=== PATIENT | male | born 1975 | race Caucasian/White ===

== ENCOUNTER → 2020-12-04 09:01 | Outpatient (CLI) | payer OTHER, SELFPAY ==
[2020-12-04 19:31] LABS: Alanine Aminotransferase 33 IU/L (<50); Albumin 4.4 g/dL (3.5-5.0); Albumin Globulin Ratio 1.7 (1.0-2.8); Alkaline Phosphatase 57 U/L (38-126); Aspartate Aminotransferase 28 IU/L (17-59); BUN Creatinine Ratio 21.7 (6-22); Bilirubin Total 1.6 mg/dL (0.2-1.3); Blood Urea Nitrogen 20 mg/dL (9-20); Calcium 9.7 mg/dL (8.4-10.2); Carbon Dioxide 34 mmol/L (22-32); Chloride 101 mmol/L (98-107); Cholesterol 149 mg/dL (140-199); Estimated Glomerular Filt Rate > 60.0 mL/min (>60); Globulin 2.6 g/dL (1.7-4.1); Glucose 95 mg/dL (70-100); HDL Cholesterol 43 mg/dL (40-60); HEMOLYSIS < 15 (0-50); LDL Cholesterol Calculated 96 mg/dL (<100); Potassium 4.4 mmol/L (3.4-5.1); Sodium 140 mmol/L (137-145); Triglycerides 52 mg/dL (35-150)
[2020-12-04 20:02] LABS: Prostate Specific Antigen Scrn 1.43 ng/mL (0.1-4.0)
== END ==
PROVIDERS: PCP Physician Assistant; Visit Provider Physician Assistant
DX: Z00.00 Encounter for general adult medical examination without abnormal findings (principal); Z12.5 Encounter for screening for malignant neoplasm of prostate; Z13.220 Encounter for screening for lipoid disorders; I35.0 Nonrheumatic aortic (valve) stenosis
CPT/HCPCS: 80053; 80061; G0103

== ENCOUNTER → 2024-04-02 10:40 | Outpatient (CLI) | payer BC, SELFPAY ==
[2024-04-02 19:43] LABS: Hematocrit 48.7 % (41-53); Hemoglobin 16.9 g/dL (13.5-17.5); Mean Corpuscular HGB Conc 34.7 % (30-36); Mean Corpuscular Hemoglobin 31.5 PG (26-34); Mean Corpuscular Volume 90.8 fL (80-100); Platelet Count 231 X10^3/uL (150-400); Red Blood Cell Count 5.36 X10^6/uL (4.5-5.9); Red Cell Distribution Width 12.6 % (11.6-14.8); White Blood Cell Count 5.8 X10^3/uL (4.5-11.0)
[2024-04-02 19:44] LABS: Add Manual Diff / Slide Review YES
[2024-04-02 19:46] LABS: Alanine Aminotransferase 42 IU/L (<50); Albumin 4.8 g/dL (3.5-5.0); Albumin Globulin Ratio 2.1 (1.0-2.8); Alkaline Phosphatase 50 U/L (38-126); Aspartate Aminotransferase 37 IU/L (17-59); BUN Creatinine Ratio 14.3 (6-22); Bilirubin Total 1.6 mg/dL (0.2-1.3); Blood Urea Nitrogen 14 mg/dL (9-20); Calcium 9.5 mg/dL (8.4-10.2); Carbon Dioxide 30 mmol/L (22-32); Chloride 101 mmol/L (98-107); Cholesterol 143 mg/dL (140-199); Estimated Glomerular Filt Rate > 60 mL/min (>60); Globulin 2.3 g/dL (1.7-4.1); Glucose 89 mg/dL (70-100); HDL Cholesterol 33 mg/dL (40-60); HEMOLYSIS 22 (0-50); LDL Cholesterol Calculated 102 mg/dL (<100); Potassium 4.4 mmol/L (3.4-5.1); Sodium 139 mmol/L (137-145); Total Protein 7.1 g/dL (6.3-8.2); Triglycerides 41 mg/dL (35-150)
[2024-04-02 20:11] LABS: Neutrophils Absolute Manual 3538 /uL (3000-5900); Total Cells Counted 100
[2024-04-02 20:19] LABS: TSH w/ Reflex to FT4 0.89 uIU/mL (0.47-4.68)
[2024-04-02 20:21] LABS: Prostate Specific Antigen Scrn 1.62 ng/mL (0.1-4.0)
[2024-04-02 20:28] LABS: RBC Morphology Normal Morphology
== END ==
PROVIDERS: PCP Physician Assistant; Visit Provider Physician Assistant
DX: I35.0 Nonrheumatic aortic (valve) stenosis (principal); R17 Unspecified jaundice; Z13.220 Encounter for screening for lipoid disorders; R01.1 Cardiac murmur, unspecified; Z12.5 Encounter for screening for malignant neoplasm of prostate
CPT/HCPCS: 80053; 80061; 84443; 85007; 85025; G0103

== ENCOUNTER 2024-05-30 09:26 | Day surgery (SDC) | payer BC, SELFPAY ==
--- NOTE | 2024-05-30 | PATH_ITS ---
[facility] Accession Number: [id number] No. of containers..01 Tissue . 01 Material submitted: . colon - SIGMOID POLYP . 01 Diagnosis: SIGMOID COLON POLYP: Hyperplastic polyp. MRV 06/03/2024 1331 Local . 01 Electronically signed: . Theo John MD, PhD, Pathologist NPI- [id number] . 01 Gross description: . Received in formalin with two patient identifiers and sigmoid polyp, consists of a 0.9 x 0.4 x 0.3 cm rm-brown polypoid tissue which is submitted in toto in cassette A1. ([id number]) /MRV 05/31/2024 1730 Local . 01 Pathologist provided ICD-10: K63.5 . 01 CPT . 708389 Specimen Comment: A courtesy copy of this report has been sent to [phone] Performed at: [address] [id number] MD Rush Armstrong MD Phone: [phone]
[2024-05-30 09:40] VITALS: BP 124/83; PULSE 72; RESP 17; TEMP 37.2; O2SAT 99
[2024-05-30] MEDS: LACTATED RINGERS 1,000 ML 150 ML IV (09:50)
--- NOTE | 2024-05-30 10:31 | P.HP_ITS ---
History of Present Illness History of Present Illness Date Patient Seen: 05/30/24 Time Patient Seen: 10:31 Chief complaint: SDC Narrative: Willis is a 48 year old man here for his first screening colonoscopy. He has no known family history of colon cancer. COUNTS INCLUDE 234 BEDS AT THE [facility] Medical History (Updated 04/03/24 @ 08:24 by Shanique Santos PA-C) Conjunctivitis Fractures Chicken pox (~1984) Surgical History Anesthesia History of tonsillectomy (~1980) Family History Father Glaucoma Mother Breast cancer Grandfather Cancer Grandmother Cancer Grandfather Smoker Grandmother Pneumonia Family/Other Genetic disorder Social History Smoking Status: Current some day smoker alcohol intake: current Meds Home Medications and Allergies Home Medications Medication Instructions Recorded Confirmed Type gentamicin 0.3 % eye drops 2 drp EYE-RIGHT TID #5 mL 10/11/21 03/25/24 Rx Allergies Allergy/AdvReac Type Severity Reaction Status Date / Time erythromycin base Allergy Intermediate Hives Verified 05/30/24 09:33 Exam Vital Signs (past 8 hours): - 05/30/24 09:40 Temperature 99 F Pulse Rate 72 Respiratory Rate 17 Blood Pressure 124/83 Pulse Oximetry 99 Oxygen Delivery Method Room Air Oxygen Flow Rate 0 Oxygen Delivery Method Room Air Oxygen Flow Rate 0 Const General: healthy appearing Assessment & Plan Assessment and plan (1) Colon cancer screening: Status: Acute Plan Colonoscopy Time-Based Coding :: [TOTAL MINUTES] spent with patient and on the chart (including review of chart, obtaining history, exam, reviewing outside data, placing orders, documenting exam and treatment plan, and counseling patient) on [DATE]. [employer] Document charge(s): No
[2024-05-30 11:02] VITALS: BP 109/71; PULSE 78; RESP 10; TEMP 36.6; O2SAT 95
--- NOTE | 2024-05-30 11:05 | PM.OP.COLON ---
Operative Date/Time/Diagnoses Date of procedure: 05/30/24 Time of procedure: 11:05 Pre-op diagnosis: Colon cancer screening Post-op diagnosis: same Procedure & Clinicians Study performed: Colonoscopy Same procedure as scheduled: Yes Surgeon: Herbie Murphy Procedure Notes Procedure in detail: Surgeon: Herbie Murphy MD Anesthesia: Neva Alston CRNA Procedure: The patient was brought to the endoscopy suite, placed in left lateral decubitus position. The patient was connected to monitoring devices. A time-out was performed. Sedation was administered. Once the patient was adequately sedated, a digital rectal exam was performed and was normal. The scope was then inserted and advanced to the cecum where the appendiceal orifice was identified and photographed. The terminal ileum was intubated and no abnormalities were seen. The scope was then slowly withdrawn over greater than 6 minutes. The mucosa was thoroughly inspected. There was a 7 mm polyp in the distal sigmoid colon which was removed with a cold snare. There was some persistent oozing from the polypectomy scar so a single hemostatic clip was applied with good effect. The scope was retroflexed in the rectum. Mild internal hemorrhoids were noted. No other abnormalities were found. The scope was straightened and removed. The patient was awakened and brought to recovery. Scope withdrawal time: 11 minutes Sedation time: 19 minutes EBL: 5 mL Findings: 7 mm sigmoid colon polyp Post-procedure Disposition: PACU
[2024-05-30 11:07] VITALS: BP 101/66; PULSE 76; RESP 15; O2SAT 95
[2024-05-30 11:13] VITALS: BP 96/54; PULSE 78; RESP 12; O2SAT 97
[2024-05-30 11:17] VITALS: BP 114/71; PULSE 83; RESP 12; O2SAT 97
== END 2024-05-30 11:45 | disposition home or self-care (01) ==
PROVIDERS: PCP Physician Assistant; Referring Provider Surgery; Visit Provider Surgery
PROC: 0DJD8ZZ Inspection of Lower Intestinal Tract, Via Natural or Artificial Opening Endoscopic (ICD-10-PCS; CPT 45378; principal; 2024-05-30 10:30)
DX: Z12.11 Encounter for screening for malignant neoplasm of colon (principal); K64.8 Other hemorrhoids; K63.5 Polyp of colon
CPT/HCPCS: 45385; J2405; J2704